=== PATIENT | male | born 1950 | race African-American/Black ===

== ENCOUNTER 2020-01-05 04:13 | Day surgery (SDC) | payer BC ==
[2020-01-04 10:44] VITALS: BMI 32.3
--- OUTSIDE RECORDS SUMMARY | 2020-01-05 04:17 | XMS ---
:1950 Author Organization [facility] Care Team Providers Name Role Phone MD Domingo Lombardi Unavailable Unavailable Other, Doctor Unavailable Unavailable Re-disclosure Warning The records that you are about to access may contain information from federally- assisted alcohol or drug abuse programs. If such information is present, then the following federally mandated warning applies: This information has been disclosed to you from records protected by federal confidentiality rules (42 CFR part 2). The federal rules prohibit you from making any further disclosure of this information unless further disclosure is expressly permitted by the written consent of the person to whom it pertains or as otherwise permitted by 42 CFR part 2. A general authorization for the release of medical or other information is NOT sufficient for this purpose. The Federal rules restrict any use of the information to criminally investigate or prosecute any alcohol or drug abuse patient.The records that you are about to access may contain highly sensitive health information, the redisclosure of which is protected by Article 27-F of the [facility] Public Health law. If you continue you may haveaccess to information: Regarding HIV / AIDS; Provided by facilities licensed or operated by the [facility] Office of Mental Health; or Provided by the [facility] Office for People With Developmental Disabilities. If such information is present, then the following [facility] mandated warning applies: This information has been disclosed to you from confidential records which are protected by state law. State law prohibits you from making any further disclosure of this information without the specific written consent of the person to whom it pertains, or as otherwise permitted by law. Any unauthorized further disclosure in violation of state law may result in a fine or correction sentence or both. A general authorization for the release of medical or other information is NOT sufficient authorization for further disclosure. Encounters Encounter Providers Location Date Indications Data Source(s ) Outpatient Attender: [facility] Doctor Other EDT - 11/09/2019 11:59:00 PM EDT Patient discharged. Insurance Providers Payer name Policy type / Policy ID Covered Covered green party's Policy Plan Coverage type green party ID relationship to Luna Information luna BC PPO [id number] SP [id number] Blue Cross Blue Cross [id number] PPO 90 Problems, Conditions, and Diagnoses Code Display Name Description Problem Type Effective Dates Data Source(s) N20.0 Calculus of Left nephrolithiasis Diagnosis 11/20/2019 [facility] kidney 12:00:00 AM EDT [facility] castrotal Surgeries/Procedures Procedure Description Date Indications Data Source(s) XR Abdomen AP XR 11/09/2019 [facility] Abdomen AP 09:21:00 AM EDT - System 11/09/2019 09:21:00 AM EDT Results ID Date Data Source [id number] 12/10/2019 08:50:00 AM EDT [facility] Name Value Range Interpretation Code Description Data Rebecca rce(s) Supporting Document(s ) SARS-CoV-2 [facility] RNA XXX Ql ANA LAURA+probe This lab was ordered by LAUREN Shetty and reported by RIKA. ID Date Data Source [id number] 12/03/2019 11:00:00 AM EDT [facility] Name Value Range Interpretation Code Description Data Rebecca rce(s) Supporting Document(s ) SARS-CoV-2 [facility] RNA XXX Ql ANA LAURA+probe This lab was ordered by LAUREN Shetty and reported by RIKA. ID Date Data Source [id number] 11/26/2019 11:47:00 AM EDT [facility] Name Value Range Interpretation Code Description Data Rebecca rce(s) Supporting Document(s ) SARS-CoV-2 [facility] RNA Resp Ql ANA LAURA+probe This lab was ordered by LAUREN Shetty and reported by RIKA. ID Date Data Source [id number] 11/15/2019 02:02:23 AM EDT [facility] Name Value Range Interpretation Description Data Source(s ) Supporting Code Document(s ) CLOtest,R NEGATIVE Normal (applies to YAMIL test, [facility] non-numeric Health System results) ID Date Data Source [id number] 11/15/2019 02:02:23 AM EDT [facility] Name Value Range Interpretation Description Data Sup porting Code Source(s) Document(s ) TissueExam Results for case Normal (applies Tissue Exam [facility] # [id number] to non-numeric Health SURGICAL results) System PATHOLOGY REPORTCLINICAL INFORMATION: GERD, dyspepsia, colon cancer screening. PREOPERATIVE DIAGNOSIS: Same. POSTOPERATIVE DIAGNOSIS: Gastritis, cecal nodules, diverticulosis, hemorrhoids. FINAL DIAGNOSIS:A: Stomach, antral transitional and oxyntic mucosa, biopsy:Mild chronic gastritis with focal superficial erosion.Negative for Helicobacter pylori on Giemsa stain.B: Colon, cecum, biopsy:Prominent mucosal lymphoid aggregate.Negati ve for epithelial polyp.GO/cmGROSS DESCRIPTION:A: In formalin, labeled "gastric biopsy", the specimen consists of 2 irregular, chowdhury pink tissue, averaging 0.3cm. The specimen is submitted in toto in one cassette.B: In formalin, labeled "biopsy of cecal nodule", the specimen consists of 4 irregular, chowdhury pink, congested tissue ranging from 0.1 to 0.4cm. The specimen is submitted in toto in one cassette.PT/stEl ectronically signed by BEV ELLISON MD (Signed out 02/04/2014) Page 2 of 2 ID Date Data Source [id number] 11/15/2019 02:02:23 AM EDT [facility] Name Value Range Interpretation Description Data Sup porting Code Source(s) Document(s ) TissueExam Results for case # Normal (applies Tissue Exam [facility] [id number] to non-numeric Health SURGICAL PATHOLOGY results) System REPORTCLINICAL INFORMATION: Anemia. Dyspepsia. History of colon polyps. Colon cancer screening.PREOPERA TIVE DIAGNOSIS: Same.POSTOPERATIVE DIAGNOSIS: Gastritis. Diverticulosis. Hemorrhoids. FINAL DIAGNOSIS: Stomach, transitional mucosa, biopsy:Mild to moderate chronic gastritis.Negative for Helicobacter pylori on Giemsa stain.GO/Florencio ELLISON MDElectronically Signed By: GROSS DESCRIPTION:In formalin, labeled "biopsy of gastric antrum", the specimen consists of three chowdhury soft tissues, averaging 0.7 x 0.2 x 0.2 cm, which are submitted in toto in one cassette.MV/cmPage 1 of 1 ID Date Data Source [id number] 11/09/2019 09:21:00 AM EDT [facility] HISTORY: Calculus of kidney.TECHNIQUE: X R Abdomen 1 View. # of images incl. paperwork: 2.COMPARISON: CT 12/06/2016.F INDINGS:BOWEL GAS PATTERN: No dilated bowel loops. Moderate stool inthecolon.FREE AI R: Not assessed on supine view.CALCIFICATIONS: Multiple left renal calculi measuring upto 1.5cm.OSSEOUS STRUCTURES: Degenerative change.SOFT TIS SUES: Probablehepatomegaly.IMPRESSION:Left nephrolithiasis. at 1015 Reported and signed by: Cornelio Lam MDEnvisionPhysician ServicesNORTHEAST REG[facility] DR. CORNELIO [phone] nically Signed:Cornelio Landeros MD at 10:13 EDTTel , Service support ,[phone] Name Value Range Interpretation Code Description Data Rebecca rce(s) Supporting Document(s ) ID Date Data Source [id number] 10/29/2019 08:58:00 AM EDT [facility] Name Value Range Interpretation Code Description Data Rebecca rce(s) Supporting Document(s ) SARS-CoV-2 [facility] RNA Resp Ql ANA LAURA+probe This lab was ordered by LAUREN Shetty and reported by RIKA. ID Date Data Source [id number] 10/01/2019 12:27:00 PM EDT [facility] Name Value Range Interpretation Code Description Data Rebecca rce(s) Supporting Document(s ) SARS-CoV-2 [facility] RNA XXX Ql ANA LAURA+probe This lab was ordered by LAUREN Shetty and reported by RIKA. ID Date Data Source [id number] 09/24/2019 09:55:00 AM EDT [facility] Name Value Range Interpretation Code Description Data Rebecca rce(s) Supporting Document(s ) SARS-CoV-2 [facility] RNA XXX Ql ANA LAURA+probe This lab was ordered by LAUREN Shetty and reported by RIKA. ID Date Data Source [id number] 09/17/2019 12:00:00 PM EDT [facility] Name Value Range Interpretation Code Description Data Rebecca rce(s) Supporting Document(s ) SARS-CoV-2 [facility] RNA XXX Ql ANA LAURA+probe This lab was ordered by LAUREN Shetty and reported by RIKA. ID Date Data Source [id number] 08/20/2019 10:25:00 AM EDT [facility] Name Value Range Interpretation Code Description Data Rebecca rce(s) Supporting Document(s ) SARS-CoV-2 [facility] RNA Resp Ql ANA LAURA+probe This lab was ordered by LAUREN Shetty and reported by RIKA. ID Date Data Source [id number] 08/14/2019 01:56:00 PM EDT [facility] Name Value Range Interpretation Code Description Data Rebecca rce(s) Supporting Document(s ) SARS-CoV-2 [facility] RNA Resp Ql ANA LAURA+probe This lab was ordered by JF jeronimo nd reported by RIKA. Procedure
[2020-01-05] MEDS ORDERED: LIDOCAINE HCL/PF 2% SDV 5ML VIAL ONE (07:44)
[2020-01-05] MEDS ORDERED: MIDAZOLAM HCL 2 MG/2 ML SINGLE DOSE VIAL ONE (07:45)
[2020-01-05] MEDS ORDERED: PROPOFOL 20 ML ONE ×2 (07:45)
[2020-01-05 07:56] LABS: EPI CELLS >36 /uL (0-25.1); HYALINE CASTS 6 /uL (0-3.1); URINE APPEARANCE TURBID; URINE BACTERIA 8966 /uL (0-1359); URINE BILIRUBIN NEGATIVE (NEGATIVE); URINE COLOR YELLOW; URINE GLUCOSE (UA) NEGATIVE (NEGATIVE); URINE KETONE NEGATIVE (NEGATIVE); URINE LEUK ESTERASE 3+ (NEGATIVE); URINE NITRITE NEGATIVE (NEGATIVE); URINE PROTEIN 1+ (NEGATIVE); URINE RBC 38 /uL (0-23.9); URINE UROBILINOGEN 0.2 mg/dL (0.2-1.0); URINE WBC 4275 /uL (0-25.8)
--- NOTE | 2020-01-05 08:00 | HP ---
History & Physical Update - History History: No Change - Physical Physical: No Change - Assessment Assessment: No Change - Plan Plan: No Change
--- NOTE | 2020-01-05 08:03 | OP ---
Operative Note - Note: Operative Date: 01/05/20 Pre-Operative Diagnosis: L renal calculi Operation: ESWL L Findings: radiopaque 1.6 cm L mid renal calculus Post-Operative Diagnosis: Same as Pre-op Surgeon: Domingo Lombardi Anesthesiologist/SENIOR PLANNER: Malu Harris Anesthesia: MAC Estimated Blood Loss (mls): 0 Operative Report Dictated: Yes
--- NOTE | 2020-01-05 08:37 | OP ---
DATE OF OPERATION: 01/05/2020 PREOPERATIVE DIAGNOSIS: Left renal calculi. POSTOPERATIVE DIAGNOSIS: Left renal calculi. PROCEDURE: Extracorporeal shock wave lithotripsy left. SURGEON: Domingo Rangel MD ASSIST: None. ANESTHESIA: IV sedation. ANESTHESIOLOGIST: SPECIMENS: None. CULTURES: None. DRAINS: None. ESTIMATED BLOOD LOSS: None. COMPLICATIONS: None. DESCRIPTION OF PROCEDURE: Patient was brought into the operating room, placed on the operating table in the supine position. After administration of intravenous sedation, patient was positioned over the treatment head and under both fluoroscopic and ultrasound guidance a large 1.6 cm left mid to upper pole radiopaque renal calculus was identified, targeted and delivered 2500 shocks to maximum kilovoltage with excellent fragmentation. He tolerated the procedure well, transferred to the recovery room in stable condition. DOMINGO RANGEL M.D. [id number]
[2020-01-05 10:22] VITALS: BP 140/90; PULSE 61; TEMP 97
[2020-01-05] MEDS ORDERED: ONDANSETRON 4 MG/2 ML VIAL IVPUSH PRN (10:32)
[2020-01-05] MEDS ORDERED: oxyCODONE HCL 5 MG TABLET PO PRN (10:32)
[2020-01-05] MEDS ORDERED: ACETAMINOPHEN 325 MG TABLET (FP) PO PRN (10:32)
[2020-01-05] MEDS ORDERED: LACTATED RINGERS SOLUTION 1,000 ML IV SCH (10:45)
== END 2020-01-05 10:30 | disposition home or self-care (01) ==
LOC: JASU-SURG 04:13
PROVIDERS: ATTEND Urology
PROC: 0TF4XZZ Fragmentation in Left Kidney Pelvis, External Approach (ICD-10-PCS; principal; 2020-01-05 08:00)
DX: N20.0 Calculus of kidney (principal)
CPT/HCPCS: 81003; 82962